=== PATIENT | female | born 1945 | race African-American/Black ===

== ENCOUNTER 2017-06-03 09:18 | Outpatient (CLI) | payer MEDICARE ==
--- NOTE | 2017-06-03 09:51 | BD ---
DEXA BONE MINERAL DENSITOMETRY EXAM, DENSITY EXAM: HISTORY: A 71-year-old postmenopausal female for screening. FINDINGS: Lumbar Spine: BMD (g/cm2) L1 1.233 T-Score: 2.2 L2 1.176 T-Score: 1.3 L3 1.170 T-Score: 0.8 L4 1.310 T-Score: 2.3 L1-L4 1.265 T-Score: 1.6 Femoral Neck: 0.830 T-Score: -0.2 Total Femur: 1.105 T-Score: 1.3 Impression: Normal bone mineral density. POS: [facility]
== END 2017-06-03 09:19 | disposition home or self-care (01) ==
LOC: MAMMO 09:18
PROVIDERS: ATTEND Nurse Practitioner Family
DX: Z78.0 Asymptomatic menopausal state (principal)
CPT/HCPCS: 77080

== ENCOUNTER 2018-03-28 10:33 | Emergency (ER) | payer MEDICARE ==
[2018-03-28 10:53] LABS: Bilirubin Negative (Negative); Blood, Urine Negative (Negative); Glucose, Urine (Dipstick) Negative (Negative); Leukocyte Negative (Negative); Nitrite Negative (Negative); Protein, Urine (Dipstick) Trace mg/dL (Neg-Trace); pH, Urine 6.5 (5.0-9.0)
[2018-03-28 10:56] LABS: Clarity Clear (Clear)
[2018-03-28 11:11] LABS: #Eosinphils 0.3 thou/uL (0.0-0.7); #Monocytes 0.5 thou/uL (0.11-0.59); %Basophils 0.1 % (0.0-1.0); %Eosinophils 3.8 % (0.0-10.0); %Lymphocytes 29.5 % (21.0-51.0); %Neutrophils 59.6 % (42.0-75.0); Hemoglobin 12.8 g/dL (12.0-16.0); Mean Corpuscular HGB CONC 32.8 g/dL (32.0-36.0); Mean Corpuscular Volume 79.4 fL (78.0-98.0); Mean Platelet Volume 6.8 fL (7.4-10.4); Platelet Count 225 thou/uL (130-400); RBC Distribution Width 13.4 % (11.5-14.5); Red Blood Cell (RBC) Count 4.93 mill/uL (4.20-5.40); White Blood Cell (WBC) Count 6.7 thou/uL (4.8-10.8)
[2018-03-28 11:35] LABS: ALT (SGPT) Less than 7 U/L (8-55); AST (SGOT) 15 U/L (5-34); Albumin 3.5 g/dL (3.4-4.8); Alkaline Phosphatase 122 U/L (40-150); Anion Gap 13 mmol/L (10-20); BUN (Urea Nitrogen) 11 mg/dL (9.8-20.1); Bilirubin, Total 0.4 mg/dL (0.2-1.2); Calc. Creatinine Clearance 0 mL/min (70-130); Carbon Dioxide 29 mmol/L (23-31); Chloride 96 mmol/L (98-107); Estimated GFR-MDRD 49; Globulin 4.4 g/dL (2.4-3.5); Glucose 181 mg/dL (83-110); Potassium 3.1 mmol/L (3.5-5.1); Protein, Total 7.9 g/dL (6.0-8.3); Sodium 135 mmol/L (136-145)
[2018-03-28] MEDS ORDERED: Potassium Chloride 20 MEQ TAB ONE (12:00)
[2018-03-28] MEDS ORDERED: Magnesium 2 GM/NS 0.9% 100 ML 2 GM in Premix Bag 1 BAG IVPB SCH (12:15)
--- NOTE | 2018-03-28 14:41 | RAD ---
PORTABLE UPRIGHT FRONTAL CHEST RADIOGRAPH: DATE: 03/28/18. COMPARISON: None available. HISTORY: Chest pain. FINDINGS: No pneumothorax is seen. There is atherosclerotic calcification in the aortic arch. There is hazy increased density in the lung bases, left greater than right. Probable small bilateral pleural effusions are noted. IMPRESSION: Findings suggesting small bilateral pleural effusions with hazy pulmonary parenchymal opacity in the lung bases, left greater than right. Findings suggest pulmonary edema and/or multifocal infectious p neumonitis. Findings could be best assessed via PA and lateral chest radiograph. Followup imaging f ollowing treatment to document resolution advised. POS: [facility]
[2018-03-28] MEDS ORDERED: Potassium Chloride 20 MEQ/100 ML PREMIX BAG ONE (14:47)
--- NOTE | 2018-04-02 11:39 | EKG ---
Test Reason : Blood Pressure : / mmHG Vent. Rate : 085 BPM Atrial Rate : 085 BPM P-R Int : 140 ms QRS Dur : 102 ms QT Int : 412 ms P-R-T Axes : 041 -44 022 degrees QTc Int : 490 ms Normal sinus rhythm Left axis deviation Incomplete right bundle branch block Left ventricular hypertrophy with repolarization abnormality Abnormal ECG Confirmed by REZA HORVATH DO ([id number]), proposal editor BRENNON VIZCARRA ([id number]) on 04/02/2018 11:39:00 AM Referred By: Confirmed By:REZA HORVATH DO
== END 2018-03-28 17:12 | disposition home or self-care (01) ==
LOC: ERS 10:33
DX: E87.6 Hypokalemia (principal); E86.0 Dehydration; E11.9 Type 2 diabetes mellitus without complications; E78.5 Hyperlipidemia, unspecified; I10 Essential (primary) hypertension; M10.9 Gout, unspecified; F32.9 Major depressive disorder, single episode, unspecified; F41.9 Anxiety disorder, unspecified; F17.220 Nicotine dependence, chewing tobacco, uncomplicated; Z79.4 Long term (current) use of insulin; Z79.899 Other long term (current) drug therapy
CPT/HCPCS: 36415; 51701; 71045; 80053; 81003; 85025; 93005; 96365; 96366; 96367; A4353; J3475; J3480

== ENCOUNTER 2020-11-25 10:53 | Emergency (ER) | payer MEDICARE, MEDICAID ==
[2020-11-25] MEDS ORDERED: Ondansetron PF 4 MG/2 ML Vial ONE (12:02)
[2020-11-25] MEDS ORDERED: Morphine 4 MG/ML VIAL ONE (12:02)
[2020-11-25 12:11] LABS: Bilirubin Negative (Negative); Blood, Urine Negative (Negative); Clarity Clear (Clear); Glucose, Urine (Dipstick) Normal (Negative); Ketone, Urine Negative (Negative); Leukocyte Negative Leu/uL (Negative); Nitrite Negative (Negative); Protein, Urine (Dipstick) Negative (Neg-Trace); Specific Gravity, Urine 1.008 (1.002-1.036); Urobilinogen Normal mg/dL (Less than 2)
[2020-11-25 12:47] LABS: #Eosinphils 0.2 thou/uL (0.0-0.7); #Lymphocytes 2.3 thou/uL (1.20-3.40); #Monocytes 0.6 thou/uL (0.11-0.59); #Neutrophils 3.9 thou/uL (1.40-6.50); %Basophils 0.5 % (0.0-1.0); %Eosinophils 2.5 % (0.0-10.0); %Lymphocytes 32.5 % (21.0-51.0); %Monocytes 8.7 % (0.0-10.0); %Neutrophils 55.9 % (42.0-75.0); Hemoglobin 12.8 g/dL (12.0-16.0); Mean Corpuscular HGB CONC 31.7 g/dL (32.0-36.0); Mean Corpuscular Hemoglobin 25.3 pg (27.0-31.0); Mean Platelet Volume 6.9 fL (7.4-10.4); Platelet Count 253 thou/uL (130-400); RBC Distribution Width 13.8 % (11.5-14.5); Red Blood Cell (RBC) Count 5.07 mill/uL (4.20-5.40)
[2020-11-25 13:05] LABS: ALT (SGPT) Less than 7 U/L (8-55); AST (SGOT) 16 U/L (5-34); Albumin 3.3 g/dL (3.4-4.8); Alkaline Phosphatase 121 U/L (40-110); Anion Gap 14 mmol/L (10-20); BUN (Urea Nitrogen) 7 mg/dL (9.8-20.1); Bilirubin, Total 0.4 mg/dL (0.2-1.2); Calc. Creatinine Clearance 0 mL/min (70-130); Calcium 8.3 mg/dL (7.8-10.44); Carbon Dioxide 35 mmol/L (23-31); Chloride 93 mmol/L (98-107); Glucose 155 mg/dL (83-110); Lipase 10 U/L (8-78); Protein, Total 7.3 g/dL (5.8-8.1); Sodium 139 mmol/L (136-145)
[2020-11-25 13:16] LABS: Potassium 2.7 mmol/L (3.5-5.1)
[2020-11-25 13:25] LABS: CKMB 0.7 ng/mL (0-6.6)
[2020-11-25] MEDS ORDERED: Potassium Chloride 20 MEQ TAB ONE (14:34)
[2020-11-25 15:19] LABS: Troponin I 0.054 ng/mL (< 0.028)
== END 2020-11-25 15:49 | disposition home or self-care (01) ==
LOC: ERS 10:53
DX: K80.20 Calculus of gallbladder without cholecystitis without obstruction (principal); K42.9 Umbilical hernia without obstruction or gangrene; E11.9 Type 2 diabetes mellitus without complications; E78.5 Hyperlipidemia, unspecified; E78.00 Pure hypercholesterolemia, unspecified; I10 Essential (primary) hypertension; M10.9 Gout, unspecified; F17.220 Nicotine dependence, chewing tobacco, uncomplicated; Z79.4 Long term (current) use of insulin; Z79.82 Long term (current) use of aspirin; Z79.899 Other long term (current) drug therapy
CPT/HCPCS: 36415; 74176; 80053; 81003; 82553; 83690; 84484; 85025; 93005; 96374; 96375; J2270; J2405

== ENCOUNTER 2021-02-17 16:00 | Inpatient (IN) | payer MEDICAID, MEDICARE ==
[~2021-02-17 16:00] MED LIST: Heparin 1,000 UNITS/ML VIAL ONE
[2021-02-17 16:48] LABS: #Basophils 0.1 thou/uL (0.0-0.2); #Eosinphils 0.5 thou/uL (0.0-0.7); #Monocytes 0.7 thou/uL (0.11-0.59); #Neutrophils 3.8 thou/uL (1.40-6.50); %Basophils 0.7 % (0.0-1.0); %Eosinophils 6.5 % (0.0-10.0); %Lymphocytes 36.8 % (21.0-51.0); %Monocytes 8.6 % (0.0-10.0); %Neutrophils 47.3 % (42.0-75.0); Hemoglobin 12.2 g/dL (12.0-16.0); Mean Corpuscular HGB CONC 32.6 g/dL (32.0-36.0); Mean Corpuscular Hemoglobin 26.5 pg (27.0-31.0); Mean Corpuscular Volume 81.3 fL (78.0-98.0); Mean Platelet Volume 6.4 fL (7.4-10.4); Platelet Count 296 thou/uL (130-400); RBC Distribution Width 13.5 % (11.5-14.5); Red Blood Cell (RBC) Count 4.61 mill/uL (4.20-5.40); White Blood Cell (WBC) Count 8.1 thou/uL (4.8-10.8)
[2021-02-17 17:09] LABS: ALT (SGPT) 8 U/L (8-55); AST (SGOT) 51 U/L (5-34); Albumin 3.1 g/dL (3.4-4.8); Alkaline Phosphatase 112 U/L (40-110); Anion Gap 14 mmol/L (10-20); BUN (Urea Nitrogen) 9 mg/dL (9.8-20.1); Bilirubin, Total 0.5 mg/dL (0.2-1.2); Calc. Creatinine Clearance 0 mL/min (70-130); Calcium 8.7 mg/dL (7.8-10.44); Carbon Dioxide 35 mmol/L (23-31); Chloride 87 mmol/L (98-107); Globulin 4.2 g/dL (2.4-3.5); Glucose 60 mg/dL (83-110); Lipase 9 U/L (8-78); Protein, Total 7.3 g/dL (5.8-8.1); Sodium 134 mmol/L (136-145)
[2021-02-17 17:17] LABS: Potassium 2.3 mmol/L (3.5-5.1)
[2021-02-17 17:31] LABS: CKMB 1.1 ng/mL (0-6.6)
[2021-02-17] MEDS ORDERED: Potassium Chloride 20 MEQ TAB ONE (17:56)
[2021-02-17] MEDS ORDERED: Potassium Chloride 30 MEQ in Sodium Chloride 0.9% 250 ML 250 ML IVPB SCH (18:15)
[2021-02-17] MEDS ORDERED: Electrolyte Replacement Protocol 1 EACH FS SCH (18:30)
[2021-02-17 18:44] LABS: Magnesium 1.8 mg/dL (1.6-2.6)
[2021-02-17 18:48] LABS: Phosphorus 1.8 mg/dL (2.3-4.7)
[2021-02-17] MEDS ORDERED: Electrolyte Replacement Protocol FS PRN (19:15)
[2021-02-17] MEDS ORDERED: Magnesium Sulfate 4 GM in Sodium Chloride 0.9% 250 ML 250 ML IVPB SCH ×2 (19:30→23:00)
[2021-02-17] MEDS ORDERED: Potassium Phosphate 30 MMOL in Sodium Chloride 0.9% 250 ML 250 ML IVPB SCH (19:30)
[2021-02-17] MEDS ORDERED: Dextrose 50% Abboject 50 ML SYRINGE SLOW IVP PRN (19:55)
[2021-02-17] MEDS ORDERED: Ondansetron PF 4 MG/2 ML Vial IVP PRN (19:55)
[2021-02-17] MEDS ORDERED: Acetaminophen 325 MG TAB PO PRN (19:55)
[2021-02-17] MEDS ORDERED: Ondansetron ODT 4 MG TAB PO PRN (19:55)
[2021-02-17] MEDS ORDERED: Dextrose 5% in Water 1,000 ML IV PRN (19:55)
[2021-02-17] MEDS ORDERED: Acetaminophen 650 MG Suppository PR PRN (19:55)
[2021-02-17] MEDS ORDERED: Potassium Chloride 20 MEQ TAB PO SCH (20:00)
[2021-02-17 20:28] LABS: Troponin I 0.066 ng/mL (< 0.028)
[2021-02-17] MEDS ORDERED: hydrALAZINE 20 MG/ML VIAL SLOW IVP PRN (20:48)
[2021-02-17 22:49] VITALS: BMI 41.1
[2021-02-17 22:54] LABS: Troponin I 0.063 ng/mL (< 0.028)
[2021-02-17] MEDS: PHOS-NAK 1 PKT PACK PO SCH (22:55)
[2021-02-17] MEDS: Dextrose 5 % And 0.9 % NaCl 1,000 ML IV SCH (22:56)
[2021-02-18] MEDS: Labetalol HCl 100 MG/20 ML VIAL SLOW IVP PRN (00:21)
[2021-02-18] MEDS: PHOS-NAK 1 PKT PACK PO SCH (02:54)
[2021-02-18 04:38] LABS: #Basophils 0.1 thou/uL (0.0-0.2); #Eosinphils 0.4 thou/uL (0.0-0.7); #Lymphocytes 2.4 thou/uL (1.20-3.40); #Monocytes 0.7 thou/uL (0.11-0.59); #Neutrophils 3.8 thou/uL (1.40-6.50); %Basophils 0.9 % (0.0-1.0); %Eosinophils 5.4 % (0.0-10.0); %Lymphocytes 32.9 % (21.0-51.0); %Monocytes 9.3 % (0.0-10.0); %Neutrophils 51.5 % (42.0-75.0); Hemoglobin 11.5 g/dL (12.0-16.0); Mean Corpuscular Hemoglobin 25.8 pg (27.0-31.0); Mean Corpuscular Volume 80.6 fL (78.0-98.0); Mean Platelet Volume 6.3 fL (7.4-10.4); Platelet Count 270 thou/uL (130-400); RBC Distribution Width 13.6 % (11.5-14.5); Red Blood Cell (RBC) Count 4.46 mill/uL (4.20-5.40); White Blood Cell (WBC) Count 7.3 thou/uL (4.8-10.8)
[2021-02-18 05:01] LABS: Anion Gap 14 mmol/L (10-20); BUN (Urea Nitrogen) 9 mg/dL (9.8-20.1); Calc. Creatinine Clearance 93 mL/min (70-130); Calcium 8.5 mg/dL (7.8-10.44); Carbon Dioxide 31 mmol/L (23-31); Chloride 93 mmol/L (98-107); Glucose 134 mg/dL (83-110); Potassium 3.3 mmol/L (3.5-5.1); Sodium 135 mmol/L (136-145)
[2021-02-18] MEDS ORDERED: Potassium Chloride 20 MEQ TAB PO SCH (06:45)
[2021-02-18 08:25] LABS: Phosphorus 2.9 mg/dL (2.3-4.7)
[2021-02-18] MEDS: Dextrose 5 % And 0.9 % NaCl 1,000 ML IV SCH (08:38)
[2021-02-18] MEDS ORDERED: Enoxaparin Sodium 40 MG/0.4 ML SYRINGE SC SCH (09:00)
[2021-02-18] MEDS ORDERED: methylPREDNISolone Sod Succ 40 MG VIAL IM SCH ×2 (11:00)
[2021-02-18] MEDS ORDERED: Lidocaine 4% PF 5 ML AMP NEB SCH (11:15)
[2021-02-18] MEDS ORDERED: Sodium Chloride 0.9% 1,000 ML IV SCH (11:15)
[2021-02-18] MEDS: HumaLOG 300 UNITS/3 ML VIAL SC PRN (12:01)
[2021-02-18] MEDS ORDERED: NS 0.9% w/ 40 MEQ KCL 500 ML IV SCH (13:00)
[2021-02-18] MEDS: Lisinopril 20 MG TAB PO SCH (14:58)
[2021-02-18] MEDS: Brimonidine Tartrate 0.2% Ophth Soln 5 ml Bottle EA EYE SCH ×2 (14:59→21:45)
[2021-02-18] MEDS ORDERED: Potassium Chloride 40 MEQ in Sodium Chloride 0.9% 500 ML IV SCH (17:00)
[2021-02-18 17:06] LABS: Potassium 3.5 mmol/L (3.5-5.1)
[2021-02-18] MEDS: Potassium Chloride 20 MEQ TAB PO SCH (17:08)
[2021-02-18] MEDS: Atorvastatin Calcium 20 MG TAB PO SCH (21:45)
[2021-02-18] MEDS: methylPREDNISolone Sod Succ 40 MG VIAL IVP SCH (21:45)
[2021-02-18] MEDS: Latanoprost 0.005% Ophth Soln 2.5 ml Bottle EA EYE SCH (21:45)
[2021-02-19] MEDS: Brimonidine Tartrate 0.2% Ophth Soln 5 ml Bottle EA EYE SCH ×3 (05:30→20:59)
[2021-02-19] MEDS: HumaLOG 300 UNITS/3 ML VIAL SC PRN ×3 (06:42→22:25)
[2021-02-19] MEDS ORDERED: Fentanyl 100 MCG/2 ML VIAL ONE (07:20)
[2021-02-19] MEDS ORDERED: SUGAMMADEX SODIUM 500 MG/5 ML VIAL ONE (07:31)
[2021-02-19] MEDS ORDERED: HumaLOG 300 UNITS/3 ML VIAL SC PRN (08:06)
[2021-02-19] MEDS ORDERED: NS 0.9% w/ 40 MEQ KCL 1,000 ML IV SCH (08:15)
[2021-02-19 08:32] LABS: #Lymphocytes 1.3 thou/uL (1.20-3.40); #Monocytes 0.2 thou/uL (0.11-0.59); #Neutrophils 5.2 thou/uL (1.40-6.50); %Basophils 0.1 % (0.0-1.0); %Eosinophils 0.2 % (0.0-10.0); %Lymphocytes 18.9 % (21.0-51.0); %Monocytes 2.5 % (0.0-10.0); %Neutrophils 78.3 % (42.0-75.0); Hemoglobin 11.9 g/dL (12.0-16.0); Mean Corpuscular HGB CONC 30.9 g/dL (32.0-36.0); Mean Corpuscular Hemoglobin 24.8 pg (27.0-31.0); Mean Corpuscular Volume 80.4 fL (78.0-98.0); Mean Platelet Volume 6.7 fL (7.4-10.4); Platelet Count 259 thou/uL (130-400); RBC Distribution Width 13.8 % (11.5-14.5); Red Blood Cell (RBC) Count 4.81 mill/uL (4.20-5.40); White Blood Cell (WBC) Count 6.7 thou/uL (4.8-10.8)
[2021-02-19 08:51] LABS: Anion Gap 15 mmol/L (10-20); BUN (Urea Nitrogen) 10 mg/dL (9.8-20.1); Calc. Creatinine Clearance 88 mL/min (70-130); Calcium 8.7 mg/dL (7.8-10.44); Carbon Dioxide 27 mmol/L (23-31); Chloride 95 mmol/L (98-107); Glucose 319 mg/dL (83-110); Potassium 4.3 mmol/L (3.5-5.1); Sodium 133 mmol/L (136-145)
[2021-02-19] MEDS ORDERED: Sodium Chloride 0.9% 1,000 ML IV SCH (09:00)
[2021-02-19] MEDS ORDERED: PROPOFOL 200 MG/20 ML VIAL ONE (09:42)
[2021-02-19] MEDS ORDERED: Succinylcholine 200 MG/10 ml SYRINGE FS ONE (09:42)
[2021-02-19] MEDS ORDERED: EPINEPHrine 1 MG/10 ML Abboject SYRINGE ONE (09:51)
[2021-02-19] MEDS: Potassium Chloride 20 MEQ TAB PO SCH (11:56)
[2021-02-19] MEDS: NPH, Human Insulin Isophane 300 UNIT/3 ML VIAL SC SCH (11:57)
[2021-02-19] MEDS: Allopurinol 100 MG TAB PO SCH (12:08)
[2021-02-19] MEDS: methylPREDNISolone Sod Succ 40 MG VIAL IVP SCH (12:13)
[2021-02-19] MEDS: Lisinopril 20 MG TAB PO SCH (15:05)
[2021-02-19] MEDS: Atorvastatin Calcium 20 MG TAB PO SCH (20:58)
[2021-02-19] MEDS: Senokot S 8.6-50 MG TAB PO SCH (20:58)
[2021-02-19] MEDS: Latanoprost 0.005% Ophth Soln 2.5 ml Bottle EA EYE SCH (20:59)
[2021-02-19] MEDS ORDERED: NPH, Human Insulin Isophane 300 UNIT/3 ML VIAL SC SCH (21:00)
[2021-02-19] MEDS: Labetalol HCl 100 MG/20 ML VIAL SLOW IVP PRN (21:27)
[2021-02-20 05:46] LABS: #Basophils 0.1 thou/uL (0.0-0.2); #Lymphocytes 2.2 thou/uL (1.20-3.40); #Monocytes 0.8 thou/uL (0.11-0.59); #Neutrophils 10.2 thou/uL (1.40-6.50); %Basophils 0.9 % (0.0-1.0); %Eosinophils 0.2 % (0.0-10.0); %Lymphocytes 16.5 % (21.0-51.0); %Monocytes 6.2 % (0.0-10.0); %Neutrophils 76.3 % (42.0-75.0); Hemoglobin 12.1 g/dL (12.0-16.0); Mean Corpuscular HGB CONC 31.7 g/dL (32.0-36.0); Mean Corpuscular Hemoglobin 25.8 pg (27.0-31.0); Mean Corpuscular Volume 81.4 fL (78.0-98.0); Mean Platelet Volume 6.6 fL (7.4-10.4); Platelet Count 296 thou/uL (130-400); RBC Distribution Width 13.8 % (11.5-14.5); Red Blood Cell (RBC) Count 4.71 mill/uL (4.20-5.40); White Blood Cell (WBC) Count 13.3 thou/uL (4.8-10.8)
[2021-02-20 05:53] LABS: Anion Gap 14 mmol/L (10-20); BUN (Urea Nitrogen) 13 mg/dL (9.8-20.1); Calc. Creatinine Clearance 103 mL/min (70-130); Calcium 9.2 mg/dL (7.8-10.44); Carbon Dioxide 28 mmol/L (23-31); Chloride 95 mmol/L (98-107); Glucose 210 mg/dL (83-110); Potassium 3.9 mmol/L (3.5-5.1); Sodium 133 mmol/L (136-145)
[2021-02-20] MEDS: Brimonidine Tartrate 0.2% Ophth Soln 5 ml Bottle EA EYE SCH (06:10)
[2021-02-20] MEDS ORDERED: predniSONE 20 MG TAB PO SCH (08:00)
[2021-02-20] MEDS: Allopurinol 100 MG TAB PO SCH (08:08)
[2021-02-20] MEDS: Senokot S 8.6-50 MG TAB PO SCH (08:08)
[2021-02-20] MEDS: NPH, Human Insulin Isophane 300 UNIT/3 ML VIAL SC SCH (08:09)
[2021-02-20 08:57] VITALS: TEMP 98.5
[2021-02-20] MEDS ORDERED: Polyethylene Glycol 3350 17 GM Packet PO SCH (09:00)
[2021-02-20 12:11] VITALS: BP 164/82
[2021-02-21 13:13] LABS: Fungus Stain Final report (.)
== END 2021-02-20 12:10 | disposition home health service (06) | DRG 167 ==
LOC: ERS 16:00 → 2SW 18:14 → OBSVTOIN 02-19 08:43
PROVIDERS: ADMIT Internal Medicine; ATTEND Internal Medicine
PROC: 02H633Z Insertion of Infusion Device into Right Atrium, Percutaneous Approach (ICD-10-PCS; 2021-02-18)
PROC: 0BBG8ZX Excision of Left Upper Lung Lobe, Via Natural or Artificial Opening Endoscopic, Diagnostic (ICD-10-PCS; principal; 2021-02-19)
DX: R91.8 Other nonspecific abnormal finding of lung field (principal); E87.1 Hypo-osmolality and hyponatremia; Z68.41 Body mass index [BMI] 40.0-44.9, adult; E87.8 Other disorders of electrolyte and fluid balance, not elsewhere classified; E11.9 Type 2 diabetes mellitus without complications; M10.9 Gout, unspecified; E78.5 Hyperlipidemia, unspecified; F17.210 Nicotine dependence, cigarettes, uncomplicated; E87.6 Hypokalemia; E78.00 Pure hypercholesterolemia, unspecified; F41.9 Anxiety disorder, unspecified; I10 Essential (primary) hypertension; K80.20 Calculus of gallbladder without cholecystitis without obstruction; E83.39 Other disorders of phosphorus metabolism; E16.2 Hypoglycemia, unspecified; E83.42 Hypomagnesemia; E66.01 Morbid (severe) obesity due to excess calories; Z79.4 Long term (current) use of insulin; Z79.82 Long term (current) use of aspirin
CPT/HCPCS: 36415; 36416; 36569; 70450; 71045; 71250; 80048; 80053; 82553; 83690; 83735; 83880; 84100; 84443; 84484; 85025; 87070; 87102; 87116; 87205; 87206; 88104; 88112; 88305; 93005; 93306; 94640; 96366; 96367; 96375; C1751; G0378; J0171; J1644; J1650; J1815; J2704; J2920; J3010; J3475; J3480; J7030; J7050; J7512; J7620